=== PATIENT | male | born 1985 | race Caucasian/White ===

== ENCOUNTER 2018-11-18 18:29 | Emergency (ER) | payer MEDICAID ==
[~2018-11-18] VITALS: Ht 175.3 cm; Wt 65.8 kg
--- NOTE | 2018-11-18 18:47 | NUR ---
Note floryone in EDM - 11/18/18 at 1852 by SANDRA ED Nurse Note: PT WALKED IN TO ER TODAY FROM HOME. AOX4. PT C/O SHARP HEADACHE, 5/10 AND STILL NECK X THIS MORNING. PT ALSO C/O LEFT ARM NUMBNESS X 30 MINUTES AGO. PT STATES HIS "LEFT ARM FEELS UNCOORDINATED." NIHSS CONDUCTED - SCORE: 0. STEADY GAIT IN ER. VSS.
--- NOTE | 2018-11-18 18:47 | NUR ---
ED Nurse Note: PT WALKED IN TO ER TODAY FROM HOME. AOX4. PT C/O SHARP HEADACHE, 5/10 AND STILL NECK X THIS MORNING. PT ALSO C/O LEFT ARM NUMBNESS X 30 MINUTES AGO. PT STATES HIS "LEFT ARM FEELS UNCOORDINATED." NIHSS CONDUCTED - SCORE: 0. STEADY GAIT IN ER. VSS. PT STATES HE WAS SEEN AT AN URGENT CARE YESTERDAY AND BLOOD WORK AND UA WERE DONE. PT STATES HE WAS TOLD ALL RESULTS WERE NORMAL EXCEPT THAT UA SHOWED BLOOD IN URINE. PT STATES HE WAS GIVEN ONE DOSE OF AZITHROYMCIN AT THE URGENT CARE AND WAS DISCHARGED. PT STATES HIS ONLY MEDICAL HISTORY IS THAT HE IS S/P THYROIDECTOMY AND IS CURRENTLY TAKING SYNTHROID 150MCG QD.
[2018-11-18 19:00] VITALS: BP 125/89
--- NOTE | 2018-11-18 19:05 | NUR ---
HAND-OFF: REPORT GIVEN TO AL JAY.
--- NOTE | 2018-11-18 19:30 | NUR ---
ED Nurse Note: RECIEVED REPORT TO [facility], PT IN BED AWAKE, ALERT AND ORIENTED X 4, PT LABS DRAWN, PLACED ON CARDIAC MONITORING, GOWNED AND EKG DONE, PT C/O TOP OF HEAD PAIN AT 8/10, DENIES CP OR DIZZINESS AND NO SOB OR LABORED BREATHING NOTED, WILL [facility] ORDERED AND CLOSELY MONITOR.
[2018-11-18 19:45] LABS: BASOPHILS % (AUTO) 1.2 % (0.0-2.0); EOSINOPHILS % (AUTO) 3.3 % (0.0-3.0); HEMATOCRIT 43.1 % (42.0-52.0); LYMPHOCYTES % (AUTO) 35.9 % (20.0-45.0); MEAN CORPUSCULAR VOLUME 92 FL (80-99); MONOCYTES % (AUTO) 8.1 % (1.0-10.0); NEUTROPHILS % (AUTO) 51.6 % (45.0-75.0); PLATELET COUNT 261 K/UL (150-450); RED BLOOD COUNT 4.68 M/UL (4.70-6.10); RED CELL DISTRIBUTION WIDTH 10.7 % (11.6-14.8); WHITE BLOOD COUNT 6.5 K/UL (4.8-10.8)
[2018-11-18 19:59] LABS: ANION GAP 8 mmol/L (5-15); BLOOD UREA NITROGEN 15 mg/dL (7-18); CALCIUM 9.4 MG/DL (8.5-10.1); CARBON DIOXIDE 29 MMOL/L (21-32); CHLORIDE 102 MMOL/L (98-107); CREATININE 0.9 MG/DL (0.55-1.30); SODIUM 139 MMOL/L (136-145)
[2018-11-18 20:11] LABS: ALANINE AMINOTRANSFERASE 42 U/L (12-78); ALBUMIN 4.3 G/DL (3.4-5.0); ALBUMIN/GLOBULIN RATIO 1.3 (1.0-2.7); ALKALINE PHOSPHATASE 52 U/L (46-116); AMYLASE 74 U/L (25-115); ASPARTATE AMINO TRANSFERASE 27 U/L (15-37); BILIRUBIN,TOTAL 0.3 MG/DL (0.2-1.0); CHOLESTEROL 174 MG/DL (< 200); TRIGLYCERIDES 101 MG/DL (30-150)
[2018-11-18 20:23] LABS: HDL CHOLESTEROL 49 MG/DL (40-60)
[2018-11-18 20:30] VITALS: BP 131/93
--- NOTE | 2018-11-18 20:33 | Diagnostic Imaging Report ---
EXAM: CT Head Without Intravenous Contrast CLINICAL HISTORY: DIZZY TECHNIQUE: Axial computed tomography images of the head brain without intravenous contrast. CTDI is 73.90 mGy and DLP is 2001 mGy-cm. One or more of the following dose reduction techniques were used: automated exposure control, adjustment of the mA and or kV according to patient size, use of iterative reconstruction technique. COMPARISON: none FINDINGS: Brain: Unremarkable. No hemorrhage. No significant white matter disease. No edema. Ventricles: Unremarkable. No ventriculomegaly. Bones joints: Unremarkable. No acute fracture. Soft tissues: Unremarkable. Sinuses: Unremarkable as visualized. No acute sinusitis. Mastoid air cells: Unremarkable as visualized. No mastoid effusion. IMPRESSION: 1. Normal head CT. 2. It is unclear why the radiation dose is as high as stated. An audit of radiation dose readings on this device may be of benefit. <MYCVCSECTION> [employer] 11 18 18 20:40 Call Doctor Regarding Above results, called Gurinder on 11 18 20:40 (-07:00)
--- NOTE | 2018-11-18 20:45 | NUR ---
ED Nurse Note: Pt continues to rest in bed, awake and alert, no changes, v/s stable, pt remains on monitoring, iv site patent, no sob, no cp, nad noted, will continue to closely monitor, pt waiting for results and disposition.
[2018-11-18] MEDS ORDERED: ASPIR-LOW81 MG ORAL (21:26)
[2018-11-18 21:30] VITALS: BP 119/76
[2018-11-18] MEDS ORDERED: Aspirin Baby 81mg ORAL ONE (21:30)
[2018-11-18 21:55] VITALS: BP 119/76
--- NOTE | 2018-11-18 21:55 | NUR ---
ER DISCHARGE NOTE: Patient is cleared to be discharged per ERMD, pt is aox4, on room air, with stable vital signs. pt was given dc and prescription instructions, pt was able to verbalize understanding, pt id band and iv site removed without complications. pt is able to ambulate with steady gait. pt took all belongings.
--- NOTE | 2018-11-19 00:10 | Emergency Room Report ---
History of Present Illness General Chief Complaint: General Complaint Source: Patient Present Illness Allergies: Coded Allergies: No Known Allergies (Unverified , 11/18/18) Patient History Reviewed Nursing Documentation: PMH: Agreed; PSxH: Agreed Nursing Documentation-PMH Past Medical History: No History, Except For Physical Exam Vital Signs Date Time Temp Pulse Resp B/P (MAP) Pulse Ox O2 Delivery O2 Flow Rate FiO2 11/18/18 18:34 98.1 75 19 126/85 (99) 100 Room Air Sp02 EP Interpretation: reviewed, normal General Appearance: normal inspection, well appearing, no apparent distress, alert, GCS 15 Head: atraumatic Eyes: bilateral eye PERRL ENT: normal ENT inspection, hearing grossly normal, normal voice Neck: normal inspection, full range of motion, supple, no bony tend, other - surgical scar Respiratory: normal inspection, lungs clear, normal breath sounds, no respiratory distress, no retraction, no wheezing Cardiovascular #1: regular rate, rhythm, no edema Gastrointestinal: normal inspection, normal bowel sounds, non tender, soft, no guarding, no hernia Genitourinary: no CVA tenderness Musculoskeletal: normal inspection, back normal, normal range of motion Neurologic: normal inspection, alert, oriented x3, responsive, electrical logger III-XII nml as tested, motor strength/tone normal, DTRs symmetric, normal gait, speech normal, no pronator Psychiatric: normal inspection, judgement/insight normal, mood/affect normal Skin: no rash Medical Decision Making Diagnostic Impression: Primary Impression: Hypothyroidism Additional Impression: Transient ischemic attack (TIA) Labs Test 11/18/18 19:15 11/18/18 19:30 White Blood Count 6.5 K/UL (4.8-10.8) Red Blood Count 4.68 M/UL (4.70-6.10) Hemoglobin 15.0 G/DL (14.2-18.0) Hematocrit 43.1 % (42.0-52.0) Mean Corpuscular Volume 92 FL (80-99) Mean Corpuscular Hemoglobin 32.0 PG (27.0-31.0) Mean Corpuscular Hemoglobin Concent 34.8 G/DL (32.0-36.0) Red Cell Distribution Width 10.7 % (11.6-14.8) Platelet Count 261 K/UL (150-450) Mean Platelet Volume 6.7 FL (6.5-10.1) Neutrophils (%) (Auto) 51.6 % (45.0-75.0) Lymphocytes (%) (Auto) 35.9 % (20.0-45.0) Monocytes (%) (Auto) 8.1 % (1.0-10.0) Eosinophils (%) (Auto) 3.3 % (0.0-3.0) Basophils (%) (Auto) 1.2 % (0.0-2.0) Prothrombin Time 10.6 SEC (9.30-11.50) Prothromb Time International Ratio 1.0 (0.9-1.1) Activated Partial Thromboplast Time 27 SEC (23-33) Sodium Level 139 MMOL/L (136-145) Potassium Level 4.0 MMOL/L (3.5-5.1) Chloride Level 102 MMOL/L (98-107) Carbon Dioxide Level 29 MMOL/L (21-32) Anion Gap 8 mmol/L (5-15) Blood Urea Nitrogen 15 mg/dL (7-18) Creatinine 0.9 MG/DL (0.55-1.30) Estimat Glomerular Filtration Rate > 60 mL/min (>60) Glucose Level 93 MG/DL (74-106) Calcium Level 9.4 MG/DL (8.5-10.1) Total Bilirubin 0.3 MG/DL (0.2-1.0) Aspartate Amino Transf (AST/SGOT) 27 U/L (15-37) Alanine Aminotransferase (ALT/SGPT) 42 U/L (12-78) Alkaline Phosphatase 52 U/L (46-116) Total Protein 7.6 G/DL (6.4-8.2) Albumin 4.3 G/DL (3.4-5.0) Globulin 3.3 g/dL Albumin/Globulin Ratio 1.3 (1.0-2.7) Triglycerides Level 101 MG/DL (30-150) Cholesterol Level 174 MG/DL (< 200) LDL Cholesterol 109 mg/dL (<100) HDL Cholesterol 49 MG/DL (40-60) Cholesterol/HDL Ratio 3.4 (3.3-4.4) Amylase Level 74 U/L (25-115) Thyroid Stimulating Hormone (TSH) 4.285 uiU/mL (0.358-3.740) Urine Opiates Screen Negative (NEGATIVE) Urine Barbiturates Screen Negative (NEGATIVE) Phencyclidine (PCP) Screen Negative (NEGATIVE) Urine Amphetamines Screen Negative (NEGATIVE) Urine Benzodiazepines Screen Negative (NEGATIVE) Urine Cocaine Screen Negative (NEGATIVE) Urine Marijuana (THC) Screen Negative (NEGATIVE) Last Vital Signs Date Time Temp Pulse Resp B/P (MAP) Pulse Ox O2 Delivery O2 Flow Rate FiO2 11/18/18 21:55 98.3 74 16 119/76 100 Room Air Status: improved Disposition: HOME, SELF-CARE Condition: Stable Scripts Aspirin* (ASPIR-LOW*) 81 Mg Tablet. 162 MG ORAL DAILY, #30 TAB Prov: Eliu Fairchild MD 11/18/18 Patient Instructions: Transient Ischemic Attack Eliu Fairchild MD Nov 19, 2018 00:10
--- NOTE | 2018-11-20 11:38 | Cardiology Report ---
APPROVED REPORT EKG Measurement Heart [id number] Normal sinus rhythm Normal ECG
== END 2018-11-18 21:55 | disposition home or self-care (01) ==
LOC: EMR 19:20
DX: G45.9 Transient cerebral ischemic attack, unspecified (principal); E03.9 Hypothyroidism, unspecified
CPT/HCPCS: 36415; 70450; 80053; 80061; 80307; 82150; 82962; 84443; 85025; 85610; 85730; 93005; Z7502; 99284